=== PATIENT | female | born 2000 | race Caucasian/White ===

== ENCOUNTER 2023-08-22 19:55 | Emergency (ER) | payer SELFPAY | END 2023-08-22 22:07 | disposition left against medical advice (07) | LOC: MW.ED 19:55 | DX: Z53.21 Procedure and treatment not carried out due to patient leaving prior to being seen by health care provider (principal) ==

== ENCOUNTER 2024-01-13 21:10 | Emergency (ER) | payer OTHER ==
[2024-01-13] MEDS: Acetaminophen/HYDROcodone 325-5 MG Tab PO ONE (22:30)
[2024-01-13] MEDS: Ibuprofen 600 MG Tab PO ONE (22:30)
== END 2024-01-13 23:17 | disposition home or self-care (01) ==
LOC: MW.ED 21:10
DX: S83.92XA Sprain of unspecified site of left knee, initial encounter (principal); Z75.8 Other problems related to medical facilities and other health care; Z79.899 Other long term (current) drug therapy; V48.0XXA Car driver injured in noncollision transport accident in nontraffic accident, initial encounter; Y93.89 Activity, other specified
CPT/HCPCS: 73562; 99283; A9270